=== PATIENT | male | born 2000 | race Caucasian/White ===

== ENCOUNTER 2022-10-01 18:59 | Emergency (ER) | payer BC, SELFPAY ==
--- NOTE | ~2022-10-01 | XR_ITS ---
EXAM: XR foot RT min 3V DATE: 10/01/2022 19:12 HISTORY: trauma today injured lateral foot skateboarding . COMPARISON: None available. FINDINGS: Normal mineralization. No fracture or dislocation. No lytic or blastic lesion. Joint space s are maintained. No erosion or periosteal change. Soft tissues within normal limits. IMPRESSION: No acute osseous finding in the right foot. Reviewed, dictated and finalized at location [facility]. [facility] PROTECTION SPECIALIST
[2022-10-01 19:19] VITALS: BP 95/66; PULSE 68; RESP 18; TEMP 37.1; O2SAT 99
--- NOTE | 2022-10-01 19:21 | ED.LOWEXIN ---
HPI - Extremity Injury (Lower) General Chief Complaint: Extremity Injury, Lower Stated Complaint: Rt Foot Pain Time Seen by Provider: 10/01/22 19:21 Source: patient Mode of arrival: ambulatory (utilized w/c upon arrival) Limitations: no limitations History of Present Illness HPI Narrative: 22-year-old male presented for complaint of right foot pain, bruising and swelling after injury today at 1400. Endorses he was skateboarding, states he 'slammed the foot into the ground while also moving towards the foot.' He had to walk about a mile after the injury occurred to get home. He has used marijuana, rested and elevated the foot and applied ice. Rates pain 3/10 at rest, 6/10 with activity. He denies numbness, tingling, weakness. denies hitting his head or LOC. Related Data Home Medications Medication Instructions Recorded Confirmed No Home Medications 10/01/22 10/01/22 Allergies Allergy/AdvReac Type Severity Reaction Status Date / Time No Known Allergies Allergy Verified 10/01/22 19:01 Review of Systems Review of Systems: CONSTITUTIONAL: Denies body aches, fever, chills EYES: Denies visual changes CARDIOVASCULAR: Denies chest pain, palpitations, or edema. RESPIRATORY: Denies cough or dyspnea. GASTROINTESTINAL: Denies abdominal pain, nausea, vomiting, or diarrhea. SKIN: Denies rash, itching, or wounds. MUSCULOSKELETAL: Per HPI NEUROLOGIC: Denies headache, numbness, tingling, or weakness. All systems reviewed & are unremarkable except as noted in HPI and below PMFSH Comments At time of signature, I have reviewed and agree with nursing past medical, surgical, social and family history unless otherwise noted. Please see nursing chart for further information. There is no relevant family history pertinent to the presenting complaint Exam Narrative: GENERAL: Well-appearing, well-nourished, and in no acute distress. HEAD: Normocephalic, atraumatic. CHEST: Speaks in full sentences. No respiratory distress. HEART: Regular rate and rhythm. Normal and equal peripheral pulses. EXTREMITIES: Moderate right lateral foot swelling and bruising, tender to palpation at base of 5th metatarsal area. Foot has normal strength and sensation, normal range of motion at ankle. No open wounds. pulse palpable and equal bilaterally, skin warm, dry, pink. Capillary refill less than 3 seconds. SKIN: Warm, dry, no rash. NEURO: Alert and oriented x3. PSYCH: Normal mood and affect Course Course Emergency Course: Patient is aware of diagnosis, understands and agrees to treatment plan. Anticipatory guidance given. Patient agrees to follow-up as directed and is aware of reasons to seek care at the emergency department. Portions of this record may have been created with voice recognition software Level of Care: Express Care Visit Vital Signs Vital signs: Vital Signs Temperature 98.8 F 10/01/22 19:19 Pulse Rate 68 10/01/22 19:19 Respiratory Rate 18 10/01/22 19:19 Blood Pressure 95/66 L 10/01/22 19:19 Pulse Oximetry 99 10/01/22 19:19 Oxygen Delivery Room Air 10/01/22 19:19 Temperature 98.8 F 10/01/22 19:19 Pulse Rate 68 10/01/22 19:19 Respiratory Rate 18 10/01/22 19:19 Blood Pressure 95/66 L 10/01/22 19:19 Pulse Oximetry 99 10/01/22 19:19 Oxygen Delivery Room Air 10/01/22 19:19 Reviewed Procedures Orthopedic Splinting/Casting Right foot: Lower Extremity Immobilizer: post-op shoe and Jignesh wrap MDM - Extremity Injury (Lower) MDM Narrative Medical decision making narrative: results of x-ray reviewed with patient. JIGNESH and postop shoe applied. Advised supportive measures and signs/symptoms to go to the ER. Pt is appropriate for outpt treatment and f/u. Differential Diagnosis Differential diagnosis: Likely ankle sprain and strain, ankle fracture and other (foot fracture, foot sprain, contusion) Imaging Data Radiologist's impression: Patient: Satya Cornejo : 2000
== END 2022-10-01 19:42 | disposition home or self-care (01) ==
PROVIDERS: Emergency Provider Nurse Practitioner Family
DX: S90.31XA Contusion of right foot, initial encounter (principal); W22.09XA Striking against other stationary object, initial encounter; Y93.51 Activity, roller skating (inline) and skateboarding; F12.90 Cannabis use, unspecified, uncomplicated
CPT/HCPCS: 73630; 99203; G0463

== ENCOUNTER 2024-11-01 08:42 | Emergency (ER) | payer OTHER, SELFPAY ==
[2024-11-01 08:58] VITALS: BP 112/69; PULSE 64; RESP 20; TEMP 37.2; O2SAT 99
--- NOTE | 2024-11-01 09:11 | ED.URI ---
HPI - URI/Sore Throat General Chief Complaint: Upper Respiratory Infection Stated Complaint: Upper Respiratory Symptoms Time Seen by Provider: 11/01/24 09:10 Source: patient, RN notes reviewed and old records reviewed Mode of arrival: ambulatory Limitations: no limitations History of Present Illness HPI Narrative: 24-year-old male who presents to [facility] with complaints of illness since Friday which includes runny nose, headache, congestion, sore throat, body aches, feeling hot and cold. Patient states he has coughed so much he can barely rest he has bought 70 dollars worth of [id number] medications which just are not helping his symptoms. Patient denies any nausea vomiting or any diarrhea MD elicited complaint: fever, cough, sore throat, rhinorrhea, nasal congestion and other (body aches) Onset (ago): day(s) (4) Severity: moderate Able to tolerate fluids by mouth: Yes Treatments prior to arrival: other ( Mucinex max) Related Data Allergies Allergy/AdvReac Type Severity Reaction Status Date / Time No Known Allergies Allergy Verified 11/01/24 08:53 Review of Systems Review of Systems: CONSTITUTIONAL: reports malaise, chills, sweats, or fever. EYES: Denies visual changes, redness, or discharge. ENT: Reports rhinorrhea, congestion, reports sinus pain, no otalgia and positive sore throat. CARDIOVASCULAR: Denies chest pain, palpitations, or edema. RESPIRATORY: Reports cough.? states he feels some dyspnea with exertion. GASTROINTESTINAL: Denies abdominal pain, nausea, vomiting, diarrhea SKIN: Denies rash or itching. MUSCULOSKELETAL: report myalgia. NEUROLOGIC: reports headache. All systems reviewed & are unremarkable except as noted in HPI and below PMFSH Social History Social History (Updated 11/01/24 @ 09:22 by Pattie Lopez NP) Smoking status: Never smoker Alcohol intake: current Alcohol use details: social Substance use: current Substance use type: marijuana Comments At time of signature, agree with nursing past medical, surgical, social and family history. There is no relevant family history pertinent to the presenting complaint Exam Narrative: GENERAL: Well-appearing, well-nourished, and in no acute distress. HEAD: Normocephalic EYES: PERRLA, conjunctivae clear ENT: Nares clear, turbinates edematous and erythematous, clear discharge. Mucous membranes moist. TM pearly dukes with dull light reflex bilaterally; no tragal tenderness. Oropharynx erythematous without lesions. Tonsils not enlarged and without exudate, no drooling, no hoarseness, no trismus, uvula midline.post nasal drainage noted. NECK: Supple. No lymphadenopathy CHEST: Clear to auscultation, breath sounds equal. No wheezing, rhonchi, rales, or stridor. No respiratory distress, speaks in full sentences.dry cough noted, SAO2 99% on room air HEART: Regular rate and rhythm. No murmur heard. SKIN: Warm, dry, no rash. NEURO: Alert and oriented x3. PSYCH: Normal mood and affect Course Course Emergency Course: Patient is aware of diagnosis, understands and agrees to treatment plan.? Anticipatory guidance given.? Patient agrees to follow-up as directed and is aware of reasons to seek care at the emergency department. Portions of this record may have been created with voice recognition software Level of Care: Express Care Visit Vital Signs Vital signs: Vital Signs Temperature 37.2 C 11/01/24 08:58 Pulse Rate 64 11/01/24 08:58 Respiratory Rate 20 11/01/24 08:58 Blood Pressure 112/69 11/01/24 08:58 Pulse Oximetry 99 11/01/24 08:58 Temperature 37.2 C 11/01/24 08:58 Pulse Rate 64 11/01/24 08:58 Respiratory Rate 20 11/01/24 08:58 Blood Pressure 112/69 11/01/24 08:58 Pulse Oximetry 99 11/01/24 08:58 Reviewed MDM - URI/Sore Throat MDM Narrative Medical decision making narrative: Differential diagnosis considered: Salas virus, strep pharyngitis, allergic rhinitis, upper respiratory tract infection, sinusitis, rhinosinusitis, nasopharyngitis. viral pharyngitis, otitis media, otitis externa, pneumonia, bronchitis, viral cough syndrome, viral syndrome, and influenza.? Exam findings show no acute concerns or changes; patient is non-toxic appearing and is in no distress.? Patient is appropriate for outpatient treatment and follow-up. Differential Diagnosis Differential diagnosis: Likely upper respiratory infection, viral infection, influenza, pharyngitis and other (COVID, cough) Medical Records Attestation: I reviewed the patient's medical records. Lab Data Attestation: I reviewed the patient's lab results. Lab results narrative: Influenza A positive, Influenza B negative, COVID antigen negative Labs: Lab Results 11/01/24 Range/Units 09:13 POC Influenza A Ag Positive (Negative) POC Influenza B Ag Negative (Negative) POC Grp A Strep Screen Negative (Negative) Critical Care Time Critical Care Time Critical Care Time: No Discharge Plan Discharge Clinical Impression: Influenza A Patient Disposition: Home, Self-Care Condition: Stable Instructions: Influenza (ED) Additional Instructions: Increase fluids especially juices and water Nior-dhx-elkmcur cough and cold medicine of your choice for your symptoms Zyrtec Claritin or Eileen daily Cough tablets as directed for cough--do not bite, chew or suck on--swallow whole Steroids as directed--take with food heat to the face 20-30 minutes 4-6 times a day for pain Salt water gargles, throat lozenges or throat sprays as desired recommend Delsym cough syrup Tylenol or ibuprofen for any fever pain If your symptoms persist, change or worsen significantly before you can contact your personal physician then please, without delay, go to the emergency department for further evaluation. Follow-up with PCP in 7-10 days or sooner if needed Patient Language: Japanese Prescriptions: New prednisone 50 mg tablet 50 mg PO DAILY Qty: 5 0RF Rx Instructions: take with food take in the morning benzonatate 200 mg capsule 200 mg PO TID PRN (Reason: cough) Qty: 20 0RF Rx Instructions: take as needed for cough up to 3 times daily Follow-up/Referrals: PHYSICIAN,WILDLIFE REMOVAL SPECIALIST [Primary Care Provider] - Stand Alone Forms: Work/School Release IP Time of Disposition: 09:27 Quality Юлия Coma Scale Eyes: Open Verbal: Oriented and Alert Motor: Follows Commands Юлия Coma Total Score: 15
[2024-11-01 09:15] LABS: EDINFLUASCREEN Positive (Negative); EDINFLUBSCREEN Negative (Negative); EDSTREPNEGPOS1 Negative (Negative)
== END 2024-11-01 09:33 | disposition home or self-care (01) ==
PROVIDERS: Emergency Provider Registered Nurse
DX: J10.1 Influenza due to other identified influenza virus with other respiratory manifestations (principal)
CPT/HCPCS: 87081; 87804; 87880; 99213; G0463

== ENCOUNTER 2025-05-18 13:44 | Emergency (ER) | payer OTHER, SELFPAY ==
--- NOTE | 2025-05-18 13:48 | ED.GENADULT ---
HPI - General Adult General Chief complaint: Skin/Abscess/Foreign Body Stated complaint: SPIDER BITE Source: patient Mode of arrival: ambulatory Limitations: no limitations History of Present Illness HPI narrative: Pt is a R hand dominant 24 y/o male presenting with c/o suspected spider bite. He reports redness, swelling to the dorsal aspect of his L. hand x 2 days. States he woke up 2 days ago and noticed a red [place] of [place] with 2 black dots and then another 2 black dots. Denies visualizing insect on his skin prior to onset of sx. No tx initiated FINANCE ADMIN. No additional complaints. Related Data Allergies Allergy/AdvReac Type Severity Reaction Status Date / Time No Known Allergies Allergy Verified 05/18/25 13:47 Review of Systems Review of Systems: CONSTITUTIONAL: Denies body aches, fever, chills, or sweats. EYES: Denies visual changes, redness, or discharge. ENT: Denies rhinorrhea, congestion, sore throat, or otalgia. CARDIOVASCULAR: Denies chest pain, palpitations, or edema. RESPIRATORY: Denies cough or dyspnea. GASTROINTESTINAL: Denies abdominal pain, nausea, vomiting, or diarrhea. GENITOURINARY: Denies dysuria or hematuria. SKIN: Reports redness, swelling to L. hand. Denies rash, itching, or wounds. MUSCULOSKELETAL: Denies back pain, joint pain, or myalgia. NEUROLOGIC: Denies headache, numbness, tingling, or weakness. PSYCH: Denies depression or anxiety. All systems reviewed & are unremarkable except as noted in HPI and below PMFSH Social History Social History Smoking status: Never smoker Alcohol intake: current Alcohol use details: social Substance use: current Substance use type: marijuana Exam Narrative: GENERAL: Well-appearing, well-nourished, and in no acute distress. HEAD: Normocephalic, atraumatic. EYES: EOMI. No redness or drainage. Conjunctivae normal. NECK: Normal AROM. Supple. CHEST: No respiratory distress. HEART: Regular rate. Normal peripheral pulses. MUSCULOSKELETAL: No bony tenderness. EXTREMITIES: Normal range of motion. SKIN: Warm, dry, no rash. Capillary refill normal. Normal skin turgor. Mild erythema and edema noted to the dorsal aspect of the L. hand. <2cm papular lesion without open wounds or fluctuance. No lymphatic streaking. No drainage. NEURO: No focal deficits. Alert and oriented x3. Gait steady. PSYCH: Normal affect. No signs of depression or anxiety. Course Course Level of Care: Express Care Visit Vital Signs Vital signs: Vital Signs Temperature 98 F 05/18/25 13:56 Pulse Rate 53 L 05/18/25 13:56 Respiratory Rate 16 05/18/25 13:56 Blood Pressure 121/63 05/18/25 13:56 Pulse Oximetry 100 05/18/25 13:56 Temperature 98 F 05/18/25 13:56 Pulse Rate 53 L 05/18/25 13:56 Respiratory Rate 16 05/18/25 13:56 Blood Pressure 121/63 05/18/25 13:56 Pulse Oximetry 100 05/18/25 13:56 Medical Decision Making Vital Signs Vital Signs: Vital Signs Temperature 98 F 05/18/25 13:56 Pulse Rate 53 L 05/18/25 13:56 Respiratory Rate 16 05/18/25 13:56 Blood Pressure 121/63 05/18/25 13:56 Pulse Oximetry 100 05/18/25 13:56 Temperature 98 F 05/18/25 13:56 Pulse Rate 53 L 05/18/25 13:56 Respiratory Rate 16 05/18/25 13:56 Blood Pressure 121/63 05/18/25 13:56 Pulse Oximetry 100 05/18/25 13:56 Discharge Plan Discharge Clinical Impression: Cellulitis, Insect bite of hand, left Patient Disposition: Home Condition: Stable Instructions: Antibiotic Form Additional Instructions: Go straight to ER should your symptoms become worse or should any new symptoms develop Patient Language: Georgian Prescriptions: New cephalexin 500 mg capsule 500 mg PO Q6H Qty: 40 0RF sulfamethoxazole-trimethoprim [Bactrim DS] 800-160 mg tablet 1 tablet PO Q12H Qty: 20 0RF Follow-up/Referrals: PHYSICIAN,FINANCE TEACHER [Primary Care Provider, Internal Medicine] - 05/19/25 Time of Disposition: 14:01
[2025-05-18 13:56] VITALS: BP 121/63; PULSE 53; RESP 16; TEMP 36.6; O2SAT 100
== END 2025-05-18 14:02 | disposition home or self-care (01) ==
PROVIDERS: Emergency Provider Registered Nurse
DX: T63.301A Toxic effect of unspecified spider venom, accidental (unintentional), initial encounter (principal); L03.114 Cellulitis of left upper limb
CPT/HCPCS: 99213; G0463